=== PATIENT | female | born 1975 | race African-American/Black ===

== ENCOUNTER → 2017-12-18 20:17 | Outpatient (CLI) | payer MEDICAID | END | disposition home or self-care (01) | LOC: D.MAMMO 08:30 | DX: Z12.31 Encounter for screening mammogram for malignant neoplasm of breast (principal) ==

== ENCOUNTER → 2018-02-26 11:11 | Outpatient (CLI) | payer MEDICAID | END | disposition home or self-care (01) | LOC: D.MRI 02-19 13:00 | DX: M54.2 Cervicalgia (principal) ==